=== PATIENT | female | born 1985 | race Caucasian/White ===

== ENCOUNTER 2020-04-12 09:21 | Emergency (ER) | payer BC, OTHER, SELFPAY ==
[2020-04-12 09:39] VITALS: BP 136/76; PULSE 78; RESP 16; TEMP 36.8; O2SAT 99
--- NOTE | 2020-04-12 09:41 | ED.BACK ---
HPI - Back Pain/Injury General Chief Complaint: Back Pain/Injury Stated Complaint: Back pain Source: patient and RN notes reviewed Mode of arrival: ambulatory Limitations: no limitations History of Present Illness HPI Narrative: This is a 34 years old female presents to the office for an evaluation of upper back pain for a couple days. She was lifting and loading heavy frozen pallets (~30lbs) and when she gets home that night, she felt sharp pain her back and left shoulder. Complains of constant pain in her back and worse with movement. Denies associated symptoms such as numbness or tingling in her upper arm or lower leg, denies urinary or bowel incontinence. She is left-hand dominant. 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 Admits to history of back pain but usually resolves with self treatment. Pain felt different this time according to patient. She took ibuprofen prior to arrival. Related Data Allergies Allergy/AdvReac Type Severity Reaction Status Date / Time No Known Allergies Allergy Verified 04/12/20 09:46 Review of Systems Review of Systems: Narrative: CONSTITUTIONAL: Denies fever or feeling ill CARDIOVASCULAR: Denies chest pain, palpitation RESPIRATORY: Denies dyspnea GASTROINTESTINAL: Denies abdominal pain, nausea, vomiting SKIN: Denies rash/lesions MUSCULOSKELETAL: Reports midback pain that shoot up to her neck and left shoulder. NEUROLOGIC: Denies lightheaded/dizziness All other systems reviewed are negative, except as documented in HPI. PMFSH Comments At time of signature, I agree with nursing past medical, surgical, social and family history. There is no relevant family history pertinent to the presenting complaint. Exam Narrative: Exam Narrative: GENERAL: This is a well-nourished, well-developed patient, in no apparent distress. CARDIOVASCULAR: Regular rate and rhythm without murmurs, gallops, or rubs. RESPIRATORY: Clear to auscultation. Breath sounds equal bilaterally. No wheezes, rales, or rhonchi. GASTROINTESTINAL: Abdomen soft, non-tender, nondistended. Bowel sounds are active. No hepato-splenomegaly, or palpable masses. No guarding. SKIN: warm, intact with no suspicious lesions or rash, good texture and turgor. NEURO: awake, alert, and oriented to person, place and time. There were no obvious focal neurologic abnormalities. Steady gait EXTREMITIES: Normal range of motion. No edema. BACK: Tenderness in the paraspinous muscle in the left side of cervical area. No tenderness over the spinous processes of the lumbar vertebrae. LEGS: Normal strength including dorsi-flexion and plantar flexion of the feet. Negative bilateral straight leg raising, normal and symmetrical knee reflexes. left shoulder with normal ROM without obvious deformity/weakness. Negative empty can test. Patient able to flex elbow; normal sensation and radius pulse intact. [place] Coma Scale Eye Opening: Spontaneous 4 Kalia Coma Scale Motor: Obeys Commands 6 [place] Coma Scale Verbal: Oriented 5 Course Vital Signs Vital signs: Vital Signs Temperature 98.2 F 04/12/20 09:39 Pulse Rate 78 04/12/20 09:39 Respiratory Rate 16 04/12/20 09:39 Blood Pressure 136/76 04/12/20 09:39 Pulse Oximetry 99 04/12/20 09:39 Temperature 98.2 F 04/12/20 09:39 Pulse Rate 78 04/12/20 09:39 Respiratory Rate 16 04/12/20 09:39 Blood Pressure 136/76 04/12/20 09:39 Pulse Oximetry 99 04/12/20 09:39 MDM - Back Pain/Injury MDM Narrative Medical decision making narrative: X-ray is not indicated, discussed with patient since there is no direct trauma or injury. Patient agree with plan of care. Discharge instructions reviewed with patient, as well as provided in writing per nursing staff. The instructions also include specific and strict return/GO TO THE ER as well as f/u information. All questions have been answered, and the patient deny any further questions with discharge and discharge plan. Differential
== END 2020-04-12 10:10 | disposition home or self-care (01) ==
PROVIDERS: Emergency Provider Nurse Practitioner
DX: M54.6 Pain in thoracic spine (principal)
CPT/HCPCS: 99213; G0463

== ENCOUNTER 2022-04-28 08:55 | Emergency (ER) | payer BC, OTHER, SELFPAY ==
[2022-04-28 09:04] VITALS: BP 118/68; PULSE 109; RESP 16; TEMP 37.2; O2SAT 99
--- NOTE | 2022-04-28 09:18 | ED.UPPEXIN ---
HPI - Extremity Injury (Upper) General Chief Complaint: Extremity Injury, Upper Stated Complaint: right arm pain Time Seen by Provider: 04/28/22 09:18 Source: patient Mode of arrival: ambulatory Limitations: no limitations History of Present Illness HPI narrative: 36 yo F presents with c/o R arm pain from R elbow into R wrist for several days. States R forearm feels a little swollen. Not taking any OTC pain medications. 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 Thinks pain may be due to this. No actual injury. ROM decreased due to pain. Distal NV intact. All systems reviewed and negative except as noted above. Related Data Home Medications Medication Instructions Recorded Confirmed multivitamin 1 tablet PO DAILY 12/28/21 04/28/22 levocetirizine 5 mg tablet (Xyzal) 5 mg PO DAILY 02/18/22 04/28/22 prenat.vits,chad,[id number] 1 tablet PO DAILY 02/18/22 04/28/22 Allergies Allergy/AdvReac Type Severity Reaction Status Date / Time No Known Allergies Allergy Verified 04/28/22 09:09 Review of Systems Review of Systems: CONSTITUTIONAL: Denies fever, chills, or sweats. EYES: Denies visual changes, redness, or discharge. ENT: Denies rhinorrhea, congestion, sore throat, or otalgia. CARDIOVASCULAR: Denies chest pain, palpitations, or edema. RESPIRATORY: Denies cough or dyspnea. GASTROINTESTINAL: Denies abdominal pain, nausea, vomiting, or diarrhea. GENITOURINARY: Denies dysuria or hematuria. SKIN: Denies rash or itching. MUSCULOSKELETAL: Denies back pain, joint pain, or myalgia. Reports R forearm pain and swelling. NEUROLOGIC: Denies headache, numbness, or weakness. PSYCHIATRIC: Denies anxiety or depression. All other systems reviewed are negative, except as documented in HPI. [facility] Family History Family History Mother Diabetes mellitus Hypertension Father Ulcer, stomach peptic Social History Social History Smoking status: Never smoker Second hand tobacco smoke exposure: Yes Alcohol intake: current Alcohol use details: social Substance use: former Substance use type: marijuana Sexual Orientation (if Verbalized by the Patient): Straight or Heterosexual Spiritual care concerns: No Agree to blood products: Yes Comments At time of signature, agree with nursing past medical, surgical, social and family history. There is no relevant family history pertinent to the presenting complaint. Exam Narrative: GENERAL: This is a well-nourished, well-developed patient, in no apparent distress. HEAD: normocephalic, atraumatic. EYES: PERRL. Sclera clear/white. Vision is grossly intact. EARS: External ears normal NOSE: External nose normal NECK: Neck supple, non-tender without lymphadenopathy, masses or thyromegaly. CARDIOVASCULAR: Regular rate and rhythm without murmurs, gallops, or rubs. RESPIRATORY: Clear to auscultation. Breath sounds equal bilaterally. No wheezes, rales, or rhonchi. SKIN: warm, Dry, intact with no suspicious lesions or rash, good texture and turgor. NEURO: awake, alert, and oriented to person, place and time. There were no obvious focal neurologic abnormalities. EXTREMITIES:Tenderness to laterall aspect R elbow and forearm. Pain with passive ROM R elbow and R wrist. mild swelling noted. Course Course Level of Care: Express Care Visit Vital Signs Vital signs: Vital Signs Temperature 37.2 C 04/28/22 09:04 Pulse Rate 109 H 04/28/22 09:04 Respiratory Rate 16 04/28/22 09:04 Blood Pressure 118/68 04/28/22 09:04 Pulse Oximetry 99 04/28/22 09:04 Oxygen Delivery Room Air 04/28/22 09:04 Temperature 37.2 C 04/28/22 09:04 Pulse Rate 109 H 04/28/22 09:04 Respiratory Rate 16 04/28/22 09:04 Blood Pressure 118/68 08
== END 2022-04-28 09:30 | disposition home or self-care (01) ==
PROVIDERS: Emergency Provider Nurse Practitioner Family; PCP Nurse Practitioner Family
DX: M77.8 Other enthesopathies, not elsewhere classified (principal)
CPT/HCPCS: 99213; A4565; G0463

== ENCOUNTER 2022-06-07 20:12 | Emergency (ER) | payer BC, OTHER, SELFPAY ==
[2022-06-07 20:26] VITALS: BP 139/86; PULSE 89; RESP 14; TEMP 36.8; O2SAT 100
[2022-06-07 20:46] LABS: Basophils Absolute Auto 0.1 K/mm3 (0.0-0.1); Basophils Percent Auto 0.3 % (0.2-1.2); Eosinophils Absolute Auto 0.1 K/mm3 (0-0.3); Eosinophils Percent Auto 0.6 % (0-4.4); Hemoglobin 14.1 g/dL (12.0-15.0); Immature Granulocyte Absolute 0.07 K/mm3 (0.00-0.031); Immature Granulocyte Percent A 0.5 % (0-0.5); Lymphocytes Absolute Auto 2.32 K/mm3 (0.9-3.2); Lymphocytes Percent Auto 15.8 % (18.3-44.2); Mean Corpuscular HGB Conc 34.4 g/dl (32-36); Mean Corpuscular Hemoglobin 30.4 pg (26-34); Mean Corpuscular Volume 88.4 fl (80-100); Mean Platelet Volume 9.3 fl (7.4-10.4); Monocytes Absolute Auto 1.4 K/mm3 (0.1-0.6); Monocytes Percent Auto 9.4 % (2.6-8.5); Neutrophils Absolute Auto 10.8 K/mm3 (1.3-6.7); Neutrophils Percent Auto 73.4 % (45.5-73.1); Platelet Count Result 344 k/mm3 (150-375); Red Blood Count 4.64 M/mm3 (4.2-5.4); Red Cell Distribution Width 12.3 % (11.5-14.5); White Blood Count 14.7 K/mm3 (4.5-10.0)
[2022-06-07 20:57] LABS: Alanine Aminotransferase 33 U/L (6-35); Albumin Level 4.2 g/dL (3.5-5.1); Alkaline Phosphatase 78 U/L (38-126); Anion Gap 11 mmol/L (8-16); Aspartate Amino Transferase 24 U/L (14-36); Bilirubin,Total 0.5 mg/dL (0.2-1.3); Blood Urea Nitrogen 11 mg/dL (7-17); Calcium 8.8 mg/dL (8.4-10.2); Carbon Dioxide 23 mmol/L (22-30); Chloride 104 mmol/L (98-107); Estimated CRCL calculation 105 ml/min; Estimated Glomerular Filt Rate > 60; Glucose 101 mg/dL (65-110); Lipase 30 U/L (23-300); Potassium 3.3 mmol/L (3.4-5.0); Sodium 138 mmol/L (137-145)
[2022-06-07 23:48] LABS: Appearance Urine Slightly Cloudy (Clear); Bilirubin Urine 1+ (Negative); Blood Urine Negative (Negative); Color Urine Yellow (Yellow); Glucose Urine UA Negative (Negative); Ketones Urine 4+ mg/dL (Negative); Leukocyte Esterase Ur Negative LEU/UL (Negative); Nitrate Urine Negative (Negative); Protein Urine 1+ mg/dL (Negative); Specific Grav Ur 1.025 (1.001-1.035); Urobilinogen Urine 0.2 mg/dL (<2.0)
[2022-06-07 23:55] VITALS: BP 138/80; PULSE 86; RESP 18; O2SAT 99
[2022-06-07 23:55] LABS: Bacteria Urine Trace /hpf; Mucus Urine Heavy /lpf; Squamous Epithelial Cell Urine Many /hpf (Few)
[2022-06-07 23:59] LABS: Add Urine Microscopic? YES
--- NOTE | 2022-06-08 00:34 | ED.GENADULT ---
HPI - General Adult General Chief complaint: Nausea/Vomiting/Diarrhea Stated complaint: N/V/D x3Days Time Seen by Provider: 06/07/22 23:40 History of Present Illness HPI narrative: this is a 36-year-old female presenting the ED with chief complaint of nausea and diarrhea. associated with epigastric abdominal pain is nonradiating, 6/10 intensity comes and goes. Patient has never experienced pain like this before there are no exacerbating relieving factors. The diarrhea is nonbloody. patient also notes that she has had fever and chills. She denies chest pain, difficulty breathing or urine symptoms. She is not vaccinated against COVID. She does note that she has not had dysuria but has had increased urinary urgency and frequency. Related Data Home Medications Medication Instructions Recorded Confirmed multivitamin 1 tablet PO DAILY 12/28/21 04/28/22 levocetirizine 5 mg tablet (Xyzal) 5 mg PO DAILY 02/18/22 04/28/22 prenat.vits,chad,[id number] 1 tablet PO DAILY 02/18/22 04/28/22 Allergies Allergy/AdvReac Type Severity Reaction Status Date / Time No Known Allergies Allergy Verified 06/07/22 23:58 Review of Systems Review of Systems: CONSTITUTIONAL: Denies night sweats. EYES: No eye pain ENT: Denies rhinorrhea CARDIOVASCULAR: Denies palpitations RESPIRATORY: Denies hemoptysis GASTROINTESTINAL: Denies hematemesis GENITOURINARY: Denies hematuria. SKIN: Denies rash MUSCULOSKELETAL: Denies myalgia. NEUROLOGIC: Denies weakness. PSYCHIATRIC: Denies delusions PMF Past Medical History Medical History (Updated 06/08/22 @ 00:40 by Yang Calderón MD) Anxiety GERD (gastroesophageal reflux disease) Family History Family History Mother Diabetes mellitus Hypertension Father Ulcer, stomach peptic Social History Social History Smoking status: Never smoker Second hand tobacco smoke exposure: Yes Alcohol intake: current Alcohol use details: social Substance use: former Substance use type: marijuana Sexual Orientation (if Verbalized by the Patient): Straight or Heterosexual Spiritual care concerns: No Agree to blood products: Yes Exam Narrative: APPEARANCE: No apparent distress. Patient is polite and friendly during our interview. Head atraumatic. EYES: PERRLA/EOMI, NOSE: Normal no drainage NECK: Supple, Trachea midline RESPIRATORY: CTAB, No increased work of breathing. CARDIOVASCULAR: S1S2 appreciated ABDOMINAL: Abdomen is obese, soft, mild tenderness in the epigastric area, no tenderness in the lower quadrants. MUSCULOSKELETAl: No obvious deformities NEURO: Alert. Moving 4/4 extremities SKIN:: Warm, dry. Normal color PSYCHIATRIC: Normal affect Course Vital Signs Vital signs: Vital Signs Temperature 98.3 F 06/07/22 20: Pulse Rate 89 06/07/22 20:26 Respiratory Rate 14 06/07/22 20: Blood Pressure 139/86 06/07/22 20: Pulse Oximetry 100 06/07/22 20:26 Oxygen Delivery Room Air 06/07/22 20:26 Temperature 98.3 F 06/07/22 20:26 Pulse Rate 89 06/07/22 20:26 Respiratory Rate 14 06/07/22 20:26 Blood Pressure 139/86 06/07/22 20:26 Pulse Oximetry 100 06/07/22 20:26 Oxygen Delivery Room Air 06/07/22 20:26 Medical Decision Making MDM Narrative Medical decision making narrative: This is a 36-year-old female presenting to ED with chief complaint of nausea vomiting and diarrhea. Patient's abdominal exam is benign. Her vital signs are stable. Lab work was noted for mild leukocytosis but no other abnormalities. Patient's urinalysis, although not a clean catch, did have 79 white blood cells per high-powered field. She is having increased urinary urgency and frequency. She will be treated with a course of antibiotics for UTI. patient will be discharged to follow-up with her primary care physician. She has been given retu
[2022-06-08] MEDS: CEPHALEXIN 500 MG CAPSULE (00:51)
== END 2022-06-08 00:56 | disposition home or self-care (01) ==
PROVIDERS: Emergency Provider Emergency Medicine; PCP Nurse Practitioner Family
DX: K52.9 Noninfective gastroenteritis and colitis, unspecified (principal); N39.0 Urinary tract infection, site not specified; F41.9 Anxiety disorder, unspecified; K21.9 Gastro-esophageal reflux disease without esophagitis
CPT/HCPCS: 36415; 80053; 81001; 81025; 83690; 85025; 87086; 87088; 87147; 99283; A9270

== ENCOUNTER 2022-06-10 10:04 | Outpatient (CLI) | payer BC, SELFPAY ==
--- NOTE | ~2022-06-10 | CT_ITS ---
EXAMINATION: CT abdomen pelvis w con DATE: 06/10/2022 10:31 INDICATION: Upper abdominal pain radiating to the left side and back. TECHNIQUE: Computed tomography (CT) of the abdomen and pelvis was performed with 100 mL Omnipaque-350 intravenous contrast. Automated exposure control and iterative reconstruction technique were employe d. The dose-length product was 1234.34 mGy-cm. COMPARISON: None FINDINGS: Lung bases are clear. Heart size is normal. No pericardial or pleural effusion. Liver, gallbladder, s pleen, pancreas, bilateral adrenal glands and kidneys are normal. There is wall thickening of the col on primarily along the ascending, transverse and proximal descending colon consistent with colitis. N o pneumatosis. Small bowel and appendix are normal. 2.3 cm left ovarian cyst or follicle. Bladder, ut erus and right adnexa are unremarkable. Trace amount of likely physiologic free fluid in the cul-de-s ac. No abscess or free intraperitoneal gas. Abdominal aorta and its major branch vessels are normal. No evident atherosclerotic disease. Multiple mildly prominent but still normal-sized lymph nodes shira g the ileocolic chain which are likely reactive. No pathologically enlarged abdominal or pelvic lymph adenopathy. Mild lumbar levocurvature. Mild bilateral hip osteoarthritis. IMPRESSION: 1. Colitis which could be infectious, inflammatory or less likely ischemic in etiology. Reviewed, dictated and finalized at location A. IMPRESSION: 1. Colitis which could be infectious, inflammatory or less likely ischemic in e tiology.
== END 2022-06-10 10:05 | disposition home or self-care (01) ==
PROVIDERS: PCP Family Medicine; Visit Provider Nurse Practitioner Family
DX: R10.12 Left upper quadrant pain (principal); R10.812 Left upper quadrant abdominal tenderness; M16.0 Bilateral primary osteoarthritis of hip; K52.9 Noninfective gastroenteritis and colitis, unspecified
CPT/HCPCS: 74177; Q9967

== ENCOUNTER 2023-07-13 08:32 | Outpatient (CLI) | payer OTHER, SELFPAY ==
--- NOTE | 2023-08-03 08:19 | WPDHOMESLEEP ---
Sleep Study - Home Unattended Date of Study: 07/13/23 Ordering Provider: Rodolfo Armendariz MD Interpreting Provider: Rosa Galvan MD Home Sleep Study Type: Watch PAT Height: 1.6 m Weight: 115.666 kg Body Mass Index: 45.1 Neck Circumference (inches): 15 Stark: 8 Reason for Sleep Study Snoring, daytime hypersomnia Sleep History Cassi Chase is a 37-year-old female with history of anxiety and GERD who underwent a home sleep test for evaluation because she snores, wakes up feeling tired, and has restless sleep. She has significant symptoms with her legs, can only be in the bed because the so face to uncomfortable, constantly feels tired. There is a family history of restless legs syndrome and sleep apnea in her mother and restless legs syndrome in her son. She never awakens from sleep short of breath. She occasionally awakens at night with heartburn, belching or cough. She occasionally snores. She occasionally has trouble sleeping when she has a cold. She never suddenly wakes up gasping for breath during the night. She never has breathing problems at night. She frequently sweats excessively at night. She rarely notices her heart pounding or beating irregularly during the night. She occasionally falls asleep during the day. She never falls asleep while driving. She rarely experiences loss of muscle tone with strong emotion. She occasionally has trouble at work because of sleepiness. She never feels paralyzed on waking or falling asleep. She occasionally experiences vivid dreams upon waking or falling asleep. She does not feel afraid of going to sleep. She occasionally has nightmares. She occasionally recalls her dreams. She occasionally has thoughts racing through her mind. She occasionally feels sad or depressed. She frequently feels anxiety or worry about things. She frequently notices parts of her body jerk. She frequently kicks during the night. She constantly feels crawling or aching feelings in her legs. She occasionally feels leg pain at night. She occasionally grinds her teeth during sleep and rarely has morning jaw pain. She occasionally feels bothered by pain during the day and is rarely awakened by pain during the night. She occasionally wakes up feeling stiff, sore, and achy in the morning. She occasionally wakes with pain in her neck, spine, or joints. Normal bedtime is around 9pm on the weekdays and 10pm on the weekends, taking about 1 hour to fall asleep. She typically gets about 7 hours of sleep per night. Her wake up time is around 4:30am on the weekdays 6 to 7am on the weekends. She typically wakes up around 2 to 3 times per night, awake 20 to 30 minutes and she take her dog outside, turn on the television or ambient noise to fall back to sleep. She takes naps in the afternoon or evening. A short nap lasting 10-15 minutes is not refreshing. She is usually drowsy for 3 hours or longer after waking. Habits: Never tobacco smoker. Drinks about 2 to 3 caffeinated beverages per day. No alcohol or recreational substances. [facility] Past Medical History Medical History Anxiety GERD (gastroesophageal reflux disease) Family History Family History Mother Diabetes mellitus Hypertension Father Ulcer, stomach peptic Sibling Hyperlipidemia Social History Social History Smoking status: Never smoker Second hand tobacco smoke exposure: Yes Alcohol intake: current Alcohol use details: social Substance use: former Substance use type: marijuana Lack of Transportation: No Lack of Food: Never True Current Housing: I Have Housing Concerned About Future Housing: No Difficulty Paying Gas/Electric Bills: No Difficulty Paying for Meds: No Currently Unemployed: No Education: High School Diploma/GED Difficulty w/ Childcare or Family Care: No
[2023-08-03 08:30] VITALS: BMI 45.1
== END 2023-07-14 09:14 | disposition home or self-care (01) ==
LOC: ANHCSM 08:34
PROVIDERS: PCP Family Medicine; Visit Provider Family Medicine
DX: G25.81 Restless legs syndrome (principal); G47.9 Sleep disorder, unspecified; G47.10 Hypersomnia, unspecified
CPT/HCPCS: 95800

== ENCOUNTER 2024-02-01 14:28 | Outpatient (CLI) | payer OTHER, SELFPAY ==
--- NOTE | ~2024-02-01 | XR_ITS ---
EXAMINATION: XR elbow RT min 3V DATE: 02/01/2024 14:55 INDICATION: Right elbow pain TECHNIQUE: Anteroposterior, two oblique and lateral views of the right elbow were obtained. COMPARISON: None. FINDINGS: Alignment is normal. No fracture or joint effusion. Joint spaces are normal. Soft tissues are unremar kable. IMPRESSION: 1. Negative right elbow radiographs. Reviewed, dictated and finalized at location A.
== END 2024-02-01 14:29 ==
PROVIDERS: PCP Family Medicine; Visit Provider Nurse Practitioner Adult Health
DX: M25.521 Pain in right elbow (principal)
CPT/HCPCS: 73080

== ENCOUNTER 2024-05-04 13:49 | Outpatient (CLI) | payer OTHER, SELFPAY ==
--- NOTE | ~2024-05-04 | US_ITS ---
EXAMINATION: US soft tissue head and neck DATE: 05/04/2024 14:01 INDICATION: Neck pain. Right posterior neck lump. TECHNIQUE: Multiple grayscale and Doppler ultrasound images of the head and neck were obtained. COMPARISON: None FINDINGS: There is no abnormal mass or lymphadenopathy in the patient's area of concern in right post erior neck. IMPRESSION: 1. No abnormal mass or lymphadenopathy in the patient's area of concern in right posterior neck. Reviewed, dictated and finalized at location A. IMPRESSION: 1. No abnormal mass or lymphadenopathy in the patient's area of concern in righ t posterior neck.
== END 2024-05-04 13:50 ==
LOC: MICIMG 13:50
PROVIDERS: PCP Family Medicine; Visit Provider Nurse Practitioner Family
DX: R22.1 Localized swelling, mass and lump, neck (principal); M54.2 Cervicalgia
CPT/HCPCS: 76536

== ENCOUNTER 2025-02-21 07:11 | Outpatient (CLI) | payer OTHER, SELFPAY ==
--- NOTE | ~2025-02-21 | MR_ITS ---
MRI of the left ankle Clinical history: Tendinitis Technique: Coronal proton-density and proton-density fat-sat images, axial proton-density and proton- density fat-sat images, and sagittal proton-density and proton-density fat-sat images were acquired. Findings: Syndesmotic ligaments are intact. Anterior and posterior talofibular ligaments, and calcane ofibular ligament are intact. Deltoid ligament intact. Medial flexor tendons, peroneal tendons, anterior extensor tendons, and Achilles tendon are intact. No osteochondral lesion of the talar dome. Joint spaces and bone marrow signals are unremarkable. Keith ntar calcaneal spur present. There is mild thickening and increased signal at the origin of the plant ar fascia. No soft tissue mass or fluid collection evident. Impression: Findings suggestive of mild plantar fasciitis. No other significant findings. Reviewed, dictated and finalized at [facility]. Impression: Findings suggestive of mild plantar fasciitis. No other significant findings.
--- NOTE | ~2025-02-21 | MR_ITS ---
EXAMINATION: MR foot LT wo con DATE: 02/21/2025 07:47 INDICATION: Pneumonitis of the left foot. TECHNIQUE: Magnetic resonance imaging (MRI) of the left fore/mid foot was performed without intraveno us contrast. Sequences included sagittal T1-weighted FSE, sagittal fluid sensitive FSE STIR, coronal PD-weighted FS FSE, coronal T1-weighted FSE, axial PD-weighted FS FSE, and axial PD-weighted FSE. COMPARISON: None FINDINGS: Bone alignment is normal. Mild osteoarthritis at the first metatarsophalangeal joint with mild subart icular cystlike change at the plantar aspect of the head of the first metatarsal along its articulati on with the tibial sesamoid. Marrow signal is otherwise normal throughout with no fracture, reactive edema or pathologic marrow replacing process. Additional minimal to mild osteoarthritis at several of the tarsometatarsal and interphalangeal joints. The Lisfranc ligament complex and the collateral lig ament complex at the metatarsophalangeal and interphalangeal joints are normal. The visualized portio ns of the flexor and extensor tendons are normal with no tenosynovitis. No joint effusions or other a bnormal fluid collections. There is nonspecific subtle increased fluid signal along the flexor digito rum brevis muscle belly. There is severe fatty atrophy along the abductor digiti minimi muscle belly. Remaining intrinsic musculature of the foot is normal. IMPRESSION: 1. Severe fatty atrophy of the abductor digiti minimi muscle belly and diffuse increased fluid signal in the flexor digitorum brevis muscle belly. 2. Minimal to mild polyarticular osteoarthritis in the mid and forefoot. Reviewed, dictated and finalized at location A.
== END 2025-02-21 07:12 | disposition home or self-care (01) ==
LOC: MICIMG 07:11
PROVIDERS: PCP Family Medicine; Visit Provider Podiatrist Foot & Ankle Surgery
DX: M62.552 Muscle wasting and atrophy, not elsewhere classified, left thigh (principal); M19.072 Primary osteoarthritis, left ankle and foot; M76.812 Anterior tibial syndrome, left leg; M79.7 Fibromyalgia
CPT/HCPCS: 73718; 73721